=== PATIENT | female | born 1960 | race Caucasian/White ===

== ENCOUNTER 2020-11-02 20:35 | Observation (INO) | payer OTHER ==
[2020-11-02] MEDS ORDERED: Promethazine HCl 25 MG/ML VIAL ONE (20:52)
[2020-11-02 21:03] LABS: #Eosinphils 0.1 thou/uL (0.0-0.7); #Lymphocytes 1.1 thou/uL (1.20-3.40); #Monocytes 0.4 thou/uL (0.11-0.59); #Neutrophils 5.4 thou/uL (1.40-6.50); %Basophils 0.3 % (0.0-1.0); %Eosinophils 0.8 % (0.0-10.0); %Lymphocytes 15.8 % (21.0-51.0); %Monocytes 5.1 % (0.0-10.0); %Neutrophils 77.9 % (42.0-75.0); Hemoglobin 12.9 g/dL (12.0-16.0); Mean Corpuscular HGB CONC 31.3 g/dL (32.0-36.0); Mean Corpuscular Hemoglobin 30.1 pg (27.0-31.0); Mean Corpuscular Volume 96.1 fL (78.0-98.0); Mean Platelet Volume 7.4 fL (7.4-10.4); Platelet Count 189 thou/uL (130-400); RBC Distribution Width 11.9 % (11.5-14.5); Red Blood Cell (RBC) Count 4.28 mill/uL (4.20-5.40)
[2020-11-02 21:21] LABS: ALT (SGPT) 17 U/L (8-55); AST (SGOT) 25 U/L (5-34); Albumin 3.7 g/dL (3.4-4.8); Alkaline Phosphatase 46 U/L (40-110); Anion Gap 19 mmol/L (10-20); BUN (Urea Nitrogen) 27 mg/dL (9.8-20.1); Bilirubin, Total 0.8 mg/dL (0.2-1.2); CK (CPK) 63 U/L (29-168); Calc. Creatinine Clearance 0 mL/min (70-130); Calcium 8.9 mg/dL (7.8-10.44); Carbon Dioxide 27 mmol/L (23-31); Chloride 90 mmol/L (98-107); Globulin 3.3 g/dL (2.4-3.5); Glucose 148 mg/dL (80-115); Lipase 26 U/L (8-78); Sodium 133 mmol/L (136-145)
[2020-11-02 21:22] LABS: Potassium 2.6 mmol/L (3.5-5.1)
[2020-11-02] MEDS ORDERED: Potassium Chloride 20 MEQ/100 ML PREMIX BAG ONE (21:27)
[2020-11-02] MEDS ORDERED: Potassium Chloride 20 MEQ TAB ONE (22:08)
[2020-11-02] MEDS ORDERED: Sodium Chloride 0.9% 1,000 ML ONE (22:56)
[2020-11-02] MEDS ORDERED: Promethazine HCl 25 MG in Sodium Chloride 0.9% 100 ML IVPB PRN (23:15)
[2020-11-02] MEDS ORDERED: Sodium Chloride 0.9% 1,000 ML IV SCH (23:15)
[2020-11-02 23:21] LABS: SARS-CoV-2 NAA Rapid Test DETECTED (NotDetected)
[2020-11-02 23:41] VITALS: BMI 25.4
[2020-11-03] MEDS: Sodium Chloride 0.9% 1,000 ML IV SCH ×2 (00:10→09:41)
[2020-11-03 05:42] LABS: Anion Gap 13 mmol/L (10-20); BUN (Urea Nitrogen) 20 mg/dL (9.8-20.1); Calc. Creatinine Clearance 94 mL/min (70-130); Calcium 8.6 mg/dL (7.8-10.44); Carbon Dioxide 31 mmol/L (23-31); Chloride 99 mmol/L (98-107); Glucose 102 mg/dL (80-115); Potassium 3.2 mmol/L (3.5-5.1); Sodium 140 mmol/L (136-145)
[2020-11-03 08:09] VITALS: BP 116/62; TEMP 96.9
[2020-11-03] MEDS ORDERED: Acetaminophen 325 MG TAB PO PRN (08:12)
[2020-11-03] MEDS ORDERED: Ondansetron ODT 4 MG TAB SL PRN (08:12)
[2020-11-03] MEDS ORDERED: Potassium Chloride 20 MEQ TAB PO SCH (08:15)
[2020-11-03] MEDS ORDERED: Hydrochlorothiazide 25 MG TAB PO SCH ×2 (09:00)
[2020-11-03] MEDS ORDERED: Citalopram 20 MG TAB PO SCH (09:00)
[2020-11-03] MEDS ORDERED: Losartan Potassium 50 MG TAB PO SCH ×2 (09:00)
== END 2020-11-03 12:00 | disposition home or self-care (01) ==
LOC: NAV ERS 20:35 → NAV ACUTE 22:52
PROVIDERS: ADMIT Family Medicine; ATTEND Family Medicine
DX: U07.1 COVID-19 (principal); E87.6 Hypokalemia; E87.1 Hypo-osmolality and hyponatremia; E86.0 Dehydration; I10 Essential (primary) hypertension; K21.9 Gastro-esophageal reflux disease without esophagitis; Z79.899 Other long term (current) drug therapy
CPT/HCPCS: 0240U; 36415; 71045; 80048; 80053; 82550; 83690; 84484; 85025; 93005; 96365; 96375; G0378; J2550; J3480; J7050